=== PATIENT | female | born 1975 | race Caucasian/White ===

== ENCOUNTER 2016-06-17 20:03 | Emergency (ER) | payer OTHER ==
[2016-06-17 20:49] LABS: PH,URINE 6.5 (5.0-8.0); URINE BILIRUBIN NEGATIVE (NEGATIVE); URINE BLOOD NEGATIVE (NEGATIVE); URINE GLUCOSE (UA) NEGATIVE (NEGATIVE); URINE LEUKOCYTE ESTERASE NEGATIVE (NEGATIVE); URINE NITRITE NEGATIVE (NEGATIVE); URINE PROTEIN NEGATIVE (NEGATIVE); URINE UROBILINOGEN NORMAL (0-1 mg/dl)
[2016-06-17 21:34] LABS: URINE APPEARANCE CLEAR; URINE COLOR YELLOW
[2016-06-17] MEDS ORDERED: DEXAMETHASONE 4 MG TABLET ONE (21:58)
[2016-06-17] MEDS ORDERED: ACETAMINOPHEN 325 MG TABLET ONE (22:35)
[2016-06-17] MEDS ORDERED: DIAZEPAM 5 MG TABLET ONE (22:36)
== END 2016-06-17 22:54 | disposition home or self-care (01) ==
LOC: ED 20:03
DX: M54.42 Lumbago with sciatica, left side (principal); R32 Unspecified urinary incontinence; M32.9 Systemic lupus erythematosus, unspecified
CPT/HCPCS: 81003; 99283 ×2; 51798; A9270 ×3

== ENCOUNTER 2016-08-29 15:50 | Emergency (ER) | payer OTHER ==
[2016-08-29 16:49] LABS: URINE APPEARANCE CLEAR; URINE BILIRUBIN NEGATIVE (NEGATIVE); URINE BLOOD NEGATIVE (NEGATIVE); URINE COLOR YELLOW; URINE GLUCOSE (UA) NEGATIVE (NEGATIVE); URINE LEUKOCYTE ESTERASE NEGATIVE (NEGATIVE); URINE NITRITE POSITIVE (NEGATIVE); URINE PROTEIN NEGATIVE (NEGATIVE); URINE UROBILINOGEN NORMAL (0-1 mg/dl)
[2016-08-29 16:57] LABS: URINE BACTERIA 2+; URINE MUCUS 1+; URINE RBC 0 /hpf
[2016-08-29] MEDS ORDERED: MORPHINE SULFATE 4 MG/ML SYRINGE ONE (20:16)
[2016-08-29] MEDS ORDERED: LACTATED RINGERS 1,000 ML ONE (20:16)
[2016-08-29] MEDS ORDERED: ONDANSETRON 4 MG/2ML 2 ML VIAL ONE (20:16)
[2016-08-29 20:32] LABS: ABSOLUTE NEUTROPHIL COUNT 6.6 K/mm3 (1.8-7.7); BASO # 0.1 K/mm3 (0.0-0.2); BASO % 0.5 % (0.2-1.0); EOS # 0.2 (0.0-0.5); EOS % 1.7 % (0.9-2.9); HEMATOCRIT 42.2 % (37.0-47.0); HEMOGLOBIN 13.7 gm/l (12.0-16.0); IMM NEUT # 0.1 K/mm3 (0-0.2); IMM NEUT% 0.5 % (0-1); LYMPH # 3.4 (1.0-4.8); LYMPH % 30.5 % (15-45); MEAN CELL VOLUME 88.3 fl (81.0-99.0); MEAN CORPUSCULAR HEMOGLOBIN 28.7 pg (27.0-31.0); MEAN CORPUSCULAR HGB CONC 32.5 g/dl (33.0-37.0); MEAN PLATELET VOLUME 9.3 fl (7.4-10.4); MONO # 0.7 (0.0-0.8); MONO % 6.5 % (4-12); NEUT % 60.3 % (43-75); PLATELET COUNT 289 K/mm3 (130-400); RED CELL DISTRIBUTION WIDTH 13.2 % (11.5-14.5)
[2016-08-29 20:45] LABS: ALB/GLOB RATIO 1.4 (>1.0); ALBUMIN 4.2 gm/dL (3.5-5.7); CALCIUM 9.5 mg/dL (8.6-10.3)
--- NOTE | 2016-08-29 20:54 | US ---
Name: PATRICE LYNN Exam: Gallbladder Ultrasound Comparison: None Clinical History: Epigastric pain with nausea Findings: Ultrasound the gallbladder was performed. Gallbladder is 9.3 cm in greatest dimension with a 1.9 cm diameter. Gallbladder wall thickness is normal at 2.3 mm. Ultrasound [place] sign is negative however the patient is medicated. There is no sludge, stones or pericholecystic fluid. Common bile duct is normal 4.6 mm. Fatty liver is present Impression: Fatty infiltration of the liver. Otherwise, normal gallbladder ultrasound Note: The above report was uploaded to [facility]'s electronic medical records system at 2049 hours.
[2016-08-29] MEDS ORDERED: CEFTRIAXONE 1 GRAM DUPLEX 50 ML IV ONE (21:35)
[2016-08-31 15:47] LABS: CHLAMYDIA BD Negative (Negative); N.GONORRHOEAE BD Negative (Negative); SOURCE Urine (())
== END 2016-08-29 22:05 | disposition home or self-care (01) ==
LOC: ED 15:50
DX: N12 Tubulo-interstitial nephritis, not specified as acute or chronic (principal); R11.0 Nausea; M32.9 Systemic lupus erythematosus, unspecified
CPT/HCPCS: 83690; 87491; 87591; 85025; 87086; 80053; 87186; 81001; 76705; 96375 ×2; 99284 ×2; 96374; 96361; J2270; J2405; J7120; J0696

== ENCOUNTER 2016-09-01 21:09 | Emergency (ER) | payer OTHER ==
[2016-09-01] MEDS ORDERED: AMOX 875 MG/CLAV 125 MG 1 EACH TABLET ONE (23:09)
[2016-09-01] MEDS ORDERED: HYDROCODONE/ACETAMINOPHEN 5/325MG TABLET ONE (23:16)
== END 2016-09-01 23:41 | disposition home or self-care (01) ==
LOC: ED 21:09
DX: S16.1XXA Strain of muscle, fascia and tendon at neck level, initial encounter (principal); S39.012A Strain of muscle, fascia and tendon of lower back, initial encounter; T14.8 Other injury of unspecified body region; V43.52XA Car driver injured in collision with other type car in traffic accident, initial encounter; Y92.410 Unspecified street and highway as the place of occurrence of the external cause
CPT/HCPCS: 99283 ×2; A9270 ×2

== ENCOUNTER 2016-09-24 09:10 | Emergency (ER) | payer OTHER ==
[2016-09-24 09:41] LABS: ABSOLUTE NEUTROPHIL COUNT 4.7 K/mm3 (1.8-7.7); BASO % 0.4 % (0.2-1.0); EOS # 0.2 (0.0-0.5); EOS % 1.9 % (0.9-2.9); HEMATOCRIT 39.9 % (37.0-47.0); IMM NEUT # 0.1 K/mm3 (0-0.2); IMM NEUT% 1.3 % (0-1); LYMPH % 34.9 % (15-45); MEAN CELL VOLUME 88.5 fl (81.0-99.0); MEAN CORPUSCULAR HEMOGLOBIN 28.8 pg (27.0-31.0); MEAN CORPUSCULAR HGB CONC 32.6 g/dl (33.0-37.0); MEAN PLATELET VOLUME 9.3 fl (7.4-10.4); MONO # 0.5 (0.0-0.8); MONO % 6.4 % (4-12); NEUT % 55.1 % (43-75); PLATELET COUNT 220 K/mm3 (130-400); RED CELL DISTRIBUTION WIDTH 12.6 % (11.5-14.5)
[2016-09-24] MEDS ORDERED: LACTATED RINGERS 1,000 ML ONE (09:42)
[2016-09-24] MEDS ORDERED: ASPIRIN CHEWTAB 81 MG TABLET ONE (09:42)
[2016-09-24 09:58] LABS: ALB/GLOB RATIO 1.3 (>1.0); ALBUMIN 3.8 gm/dL (3.5-5.7); CALCIUM 9.2 mg/dL (8.6-10.3)
[2016-09-24 10:03] LABS: TROPONIN I < 0.01 ng/ml (0.0-0.06)
--- NOTE | 2016-09-24 10:06 | RAD ---
EXAMINATION:CHEST - 2 VIEWS CLINICAL INDICATION: Chest pain COMPARISON: 07/04/2015. FINDINGS: The cardiomediastinal silhouette is within normal limits. There is no adenopathy identified. There is no pleural effusion. The lungs are clear. The osseous structures are unremarkable for age. IMPRESSION: Negative PA and lateral views of the chest. No acute cardiopulmonary process is identified.
[2016-09-24 10:07] LABS: CKMB ISOENZYME 2.7 ng/ml (0.6-6.3)
[2016-09-24] MEDS ORDERED: MORPHINE SULFATE 4 MG/ML SYRINGE ONE (11:43)
== END 2016-09-24 13:45 | disposition home or self-care (01) ==
LOC: ED 09:10
DX: R07.9 Chest pain, unspecified (principal); M32.9 Systemic lupus erythematosus, unspecified